=== PATIENT | male | born 1950 | race Caucasian/White ===

== ENCOUNTER → 2016-07-08 | Outpatient (CLI) | payer MEDICARE, OTHER ==
[~2016-07-08] MED LIST: ASPIRIN LO-DOSE81 MG PO; BISOPROLOL FUMAR5 MG PO; CENTRUM SILVER1 EAC5 PO; FENOFIBRATE145 MG PO; FIBERCON1 TAB PO; GLUCOPHAGE500 MG PO; LIPITOR80 MG PO; MEGARED OMEGA-1 EAC1 PO; OMEPRAZOLE20 MG PO; PLAVIX75 MG PO; PRAVACHOL80 MG PO; VASOTEC2.5 MG PO
--- NOTE | ~2016-07-08 | PUL ---
PATIENT'S NAME: [facility] AGE: 66 Y [address] ROOM: [place] [id number] LOCATION: [facility] ADMIT DATE: 07/08/2016 Pulmonary DISCHARGE DATE: FAMILY PHYSICIAN: SADI BECERRA MD ATTENDING PHYSICIAN: SADI BECERRA NAME OF PROCEDURE: Sleep Study PROCEDURE DATE: 07/08/16 TECH: SOBEIDA Castle TEST #: SDC# [id number] TECHNICAL PARAMETERS: The patient was studied using International 10/20 measuring system. While the patient was studied, there was continuous monitoring of EEG (8 leads), EOG (2 leads), EKG (3 leads), submental EMG (3 leads), tibial (4 leads), respiratory inductive plethysmography (RIP) for thoracic and abdominal effort, oral and nasal airflow with a thermocouple and pressure transducer, and oximetry. The power lineman technician also performed visual and auditory observations noting things like body position, patient's status, breath sounds, artifact, snoring level and patient comments. Continuous sound was monitored using a 2-way speaker system and video monitoring was performed using an infrared camera. Review of the entire study was performed epoch by epoch utilizing a single epoch and multiple epoch capability sleep system. MEDICAL HISTORY: The patient is a 66-year-old gentleman with severe obstructive sleep apnea and daytime sleepiness. This study was done to re- titrate PAP therapy. SLEEP STAGE SUMMARY: The patient was studied for 518 minutes of which he slept 339 minutes. He fell asleep in 3 minutes and slept for 65% of the night. Sleep architecture revealed a mild decline in REM sleep and significant decline in slow wave sleep. RESPIRATORY SUMMARY: Oxygen saturations ranged from 81-93% and were below 88% for 9 minutes. CPAP was initiated at 6 cm. As the CPAP was titrated central apneas occurred. Adequate control of the respiratory events was not achieved. EKG SUMMARY: Average heart rate during sleep 64 beats per minute. LIMB MOVEMENT SUMMARY: No clinically relevant periodic limb movements were noted were noted. 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 PATIENT'S NAME: [facility] AGE: 66 Y [address] ROOM: [place] [id number] LOCATION: [facility] ADMIT DATE: 07/08/2016 Pulmonary DISCHARGE DATE: FAMILY PHYSICIAN: SADI BECERRA MD ATTENDING PHYSICIAN: SADI BECERRA PLAN: Would consider a repeat study for BiPAP titration. If BiPAP is unable to control the central apneas, then ASV ventilation should be considered. The patient will receive results from the ordering provider. FADY SCHILLING MD MAR/ /[id number] dtt: 07/22/16 1743 , Fady Schilling. dtd: 07/13/16 1216
== END | disposition disaster alternative care site (69) ==
LOC: GSLP 20:20
DX: G47.19 Other hypersomnia (principal); G47.33 Obstructive sleep apnea (adult) (pediatric); G47.31 Primary central sleep apnea; G47.36 Sleep related hypoventilation in conditions classified elsewhere; I10 Essential (primary) hypertension; R53.82 Chronic fatigue, unspecified